=== PATIENT | male | born 1940 | race Caucasian/White ===

== ENCOUNTER 2018-01-04 15:52 | Inpatient (IN) | payer OTHER, MEDICAID ==
[~2018-01-04] VITALS: Ht 185.4 cm; Wt 86.2 kg
[~2018-01-04 15:52] MED LIST: AUGMENTIN 500-1 EACH PO; BACTRIM DS TAB1 EACH PO; GLIPIZIDE XL5 MG PO; HUMALOG KW100 UNIT/1 SUBQ; KEFLEX500 MG PO; LEVEMIR SUBQ; LINZESS145 MCG PO; LISINOPRIL; LISINOPRIL20 MG PO; NORVASC5 MG PO; PRILOSEC 20 MG20 MG PO; TOPROL XL25 MG PO; ZOCOR20 MG PO
[2018-01-04 16:05] VITALS: BP 113/54
[2018-01-04] MEDS ORDERED: LASIX 20 MG TAB20 MG PO (16:14)
[2018-01-04] MEDS ORDERED: COLACE100 MG PO (16:14)
[2018-01-04] MEDS ORDERED: KLOR-CON 1010 MEQ PO (16:14)
[2018-01-04 16:15] LABS: HEMATOCRIT 34.7 % (42.0-52.0); HEMOGLOBIN 11.6 gm/dL (14.0-18.0); MCH 28.6 pg (26.0-34.0); MCHC 33.5 g/dL (28.0-37.0); MCV 85.3 fL (80.0-100.0); NUCLEATED RBCS 0 /100WBC; PLATELET COUNT* 280 thou/uL (150-400); RBC 4.06 mil/uL (4.50-6.00); RDW-CV 15.3 % (10.5-14.5); WBC 11.4 thou/uL (4.0-11.0)
[2018-01-04] MEDS ORDERED: VITAMINC500 PO (16:15)
[2018-01-04] MEDS ORDERED: FLORASTOR250 MG PO (16:15)
[2018-01-04] MEDS ORDERED: MIRALAX17 GM PO (16:15)
[2018-01-04] MEDS ORDERED: TYLENOL EXTRA500 MG PO (16:16)
[2018-01-04] MEDS ORDERED: NORCO 5-325 TA1 EACH PO (16:16)
[2018-01-04] MEDS ORDERED: [UNRECOGNIZED DRUG - OTHER] (16:16)
[2018-01-04] MEDS ORDERED: HIPREX1 GM PO (16:17)
[2018-01-04 16:19] LABS: ANION GAP 8 mmol/L (7-16); BUN 27 mg/dL (7-18); CALCIUM 7.8 mg/dL (8.5-10.1); CHLORIDE 99 mmol/L (98-107); CO2 25 mmol/L (21-32); CREATININE 1.4 mg/dL (0.6-1.3); GLUCOSE 78 mg/dL (70-99); SODIUM 132 mmol/L (136-145)
[2018-01-04 16:22] LABS: INR 1.2; PROTIME 11.5 Seconds (9.20-11.50)
[2018-01-04 16:26] LABS: ALBUMIN 2.6 g/dL (3.4-5.0); ALKALINE PHOSPHATASE 90 U/L (46-116); LIPASE 76 U/L (73-393); SGOT 26 U/L (15-37); SGPT 28 U/L (30-65); TOTAL BILIRUBIN 0.5 mg/dL (<0.1-1.0); TOTAL PROTEIN 6.8 g/dL (6.4-8.2); TROPONIN-I LEVEL <0.06 ng/mL (<0.06)
[2018-01-04 16:56] LABS: URINE BILIRUBIN NEGATIVE (Negative); URINE BLOOD 3+ (Negative); URINE CLARITY CLOUDY; URINE COLOR YELLOW; URINE GLUCOSE-RANDOM NEGATIVE (Negative); URINE KETONES NEGATIVE (Negative); URINE LEUKOCYTES-REFLEX 3+ (Negative); URINE NITRITE-REFLEX NEGATIVE (Negative); URINE PROTEIN 3+ (Negative); URINE SPECIFIC GRAVITY 1.025 (1.005-1.030); URINE UROBILINOGEN 0.2 E.U./dl (0.2-1.0)
[2018-01-04 17:02] LABS: ABSOLUTE EOSINOPHILS 0.2 thou/uL (0.0-0.7); ABSOLUTE LYMPHOCYTES 0.9 thou/uL (0.8-5.3); ABSOLUTE MONOCYTES 1.7 thou/uL (0.0-1.2); ABSOLUTE NEUTROPHILS 8.6 thou/uL (1.6-8.1)
[2018-01-04 17:03] LABS: PLATELET ESTIMATE ADEQUATE
[2018-01-04 17:06] LABS: URINE WBC-REFLEX >25 Many /HPF (0-5); WBC CLUMPS Few (None Seen)
[2018-01-04 17:08] LABS: HYALINE CASTS 0-3 Few /LPF (None Seen)
[2018-01-04 17:09] LABS: CRYSTALS None Seen /LPF (None Seen); MUCUS None Seen strn/LPF (None Seen); SQUAMOUS NONE SEEN /LPF (0-3)
[2018-01-04 17:15] VITALS: BP 142/69
[2018-01-04 17:18] VITALS: BP 113/54
[2018-01-04 20:00] VITALS: BP 126/76
[2018-01-05] VITALS: BP 117/42; BP 125/60
[2018-01-05 04:00] VITALS: BP 124/46
[2018-01-05 06:06] LABS: CALCIUM 7.4 mg/dL (8.5-10.1); CREATININE 1.2 mg/dL (0.6-1.3)
[2018-01-05 07:50] VITALS: BP 114/51
--- NOTE | 2018-01-05 09:39 | EKG ---
[place] [address] ELECTROCARDIOGRAM REPORT Name: YASIR CARROLL Room: [address] ADM IN M.R.#: [id number] Admission: 01/04/18 Attend Phys: Mihai Burdick Discharge: Date of : 36 Report #: [id number] THIS REPORT FOR: //name// [facility] ED Test Date: 2018-01-04 Test Time: 16:07:14 Pat Name: YASIR CARROLL Department: Room: [facility] Gender: M Senior Writer: MS : 1940 Requested By: Ras Loving Order Number: [id number] MD: Naseem Trotter Measurements Intervals [place] Rate: 64 P: -24 MT: 221 QRS: -28 QRSD: 99 T: 32 QT: 419 QTc: 433 Interpretive Statements Sinus rhythm Prolonged MT interval Borderline left axis deviation Abnormal R-wave progression, early transition Baseline wander in lead(s) I,II,aVR Compared to ECG 03/14/2017 15:20:58 First degree AV block now present Left ventricular hypertrophy no longer present Electronically Signed On 01-05-2018 9:39:04 CDT by Naseem Trotter [email or web address] <ELECTRONICALLY SIGNED> By: Naseem Trotter MD, FACC 01/05/18 0939 1607 [id number] Naseem Tortter MD, FAC /EPI
[2018-01-05 11:57] VITALS: BP 119/52
[2018-01-05 15:59] VITALS: BP 122/57
[2018-01-05 20:00] VITALS: BP 97/35
[2018-01-06] VITALS: BP 123/41
[2018-01-06 04:00] VITALS: BP 126/49
[2018-01-06 04:16] LABS: HEMATOCRIT 34.3 % (42.0-52.0); HEMOGLOBIN 11.4 gm/dL (14.0-18.0); MCH 28.3 pg (26.0-34.0); MCHC 33.3 g/dL (28.0-37.0); MCV 85.1 fL (80.0-100.0); MPV 8.1 fl. (7.2-11.1); RBC 4.03 mil/uL (4.50-6.00); RDW-CV 15.5 % (10.5-14.5); WBC 7.7 thou/uL (4.0-11.0)
[2018-01-06 04:37] LABS: ALBUMIN 2.1 g/dL (3.4-5.0); CALCIUM 7.3 mg/dL (8.5-10.1); CREATININE 1.1 mg/dL (0.6-1.3); MAGNESIUM 1.4 mg/dL (1.8-2.4); PHOSPHORUS* 2.8 mg/dL (2.5-4.9); POTASSIUM 3.4 mmol/L (3.5-5.1)
[2018-01-06 08:00] VITALS: BP 112/37
[2018-01-06 12:16] VITALS: BP 134/51
--- NOTE | 2018-01-06 12:50 | CON ---
[address] [address] CONSULTATION Name: YASIR CARROLL Room: [address] IN M.R.#: [id number] Admission: 01/04/18 Attend Phys: Mihai Burdick Discharge: Date of : 36 Report #: [id number] THIS REPORT FOR: //name// CC[facility] DATE OF SERVICE: 01/05/2018 ATTENDING PHYSICIAN: Dr. Suarez. REASON FOR EVALUATION: Scrotal cellulitis, sepsis. HISTORY OF PRESENT ILLNESS: Chart reviewed. The patient is a 77-year-old half-way resident who was admitted with encephalopathy. It is notable he has history of diabetes. Apparently, he has some dysphagia as well. Apparently, he was quite lethargic, noted to have some fevers, specific question primarily yes, no. Seemed to have pain in both lower extremities, perhaps in his scrotum as well. Denies significant pulmonary-related complaints, although there was reference to some chest pain. In terms of evaluation for fevers, chest x-ray was otherwise unremarkable as was urinalysis. Essentially, blood cultures are sterile thus far. He was felt to have possible scrotal cellulitis, started on empiric therapy with vancomycin, meropenem and Zosyn. ALLERGIES: TO LATEX. CURRENT MEDICATIONS: Include meropenem, Zosyn, insulin, glipizide, saccharomyces, amlodipine, hydrocodone. PAST MEDICAL HISTORY: History of diabetes mellitus, hypertension, previous history of colon cancer with colostomy. Does have some venous stasis insufficiency of lower extremities and perhaps lymphedema. SOCIAL HISTORY: Nonsmoker, no ethanol. FAMILY HISTORY: Noncontributory. REVIEW OF SYSTEMS: Somewhat limited due to his speech difficulty and possible some degree of dementia. PHYSICAL EXAMINATION: GENERAL: He appears chronically ill, undernourished, mild to moderate distress. VITAL SIGNS: Temperature max 103.1, more recently 98.8; pulse 68, respirations 18, blood pressure 114/51. SKIN: Warm, several contused areas. NECK: [place] [address] CONSULTATION Name: CARROLLYASIR PLUMMER Room: [address] IN [facility]#: [id number] Admission: 01/04/18 Attend Phys: Mihai Burdick Discharge: Date of : 36 Report #: [id number] LUNGS: Diminished breath sounds. Few scattered crackles at the bases posteriorly. HEART: Regular. I do not appreciate a murmur. ABDOMEN: Mildly obese, soft, no peritoneal signs. PELVIC: Penis and scrotum have moderate degree of inflammation. There is some induration, especially in the suprapubic region. It is difficult to ascertain tenderness. EXTREMITIES: Lower extremities have venous stasis insufficiency changes with dermopathy. Left side has increased temperature. There is a mild degree of surface inflammation noted. There are no bullous lesions or ulcers. GENITOURINARY: Deferred. RECTAL: Deferred. LABORATORY DATA: Blood cultures sterile thus far. Electrolytes: Sodium 135, potassium 4, chloride 102, bicarbonate 24, BUN and creatinine 18 and 1.2. Prealbumin of 12.9, glucose has been mostly normal. CBC: White count of 11.4, H and H 11.6 and 34.7, platelets of 280, does have monocytosis. Lactic acid 0.9. Liver functions otherwise unremarkable. Albumin 2.6, total protein . Estimated GFR 49. PT of 11.5, INR of 1.2. ASSESSMENT: Scrotal cellulitis, perhaps lower extremity inflammatory eruption may have component particularly in the left of a cellulitis as well. We will adjust antimicrobial therapy. I think we could back off on the significant gram-negative coverage at this point. We will dose with vancomycin and see how he does clinically. At this point, most likely be a gram-positive infection. We will add compression to the lower extremities as allowed and elevation. <ELECTRONICALLY SIGNED> By: Ned Hoover MD 01/06/18 1250 [id number] [id number] Hoover MD /nt
[2018-01-06 19:30] VITALS: BP 123/60
[2018-01-07] VITALS: BP 138/57
[2018-01-07 04:00] VITALS: BP 146/62
[2018-01-07 05:38] LABS: HEMATOCRIT 35.3 % (42.0-52.0); HEMOGLOBIN 11.7 gm/dL (14.0-18.0); MCH 28.3 pg (26.0-34.0); MCHC 33.2 g/dL (28.0-37.0); MCV 85.1 fL (80.0-100.0); MPV 7.9 fl. (7.2-11.1); RBC 4.15 mil/uL (4.50-6.00); RDW-CV 15.2 % (10.5-14.5); WBC 7.2 thou/uL (4.0-11.0)
[2018-01-07 05:54] LABS: ALBUMIN 2.2 g/dL (3.4-5.0); CALCIUM 7.8 mg/dL (8.5-10.1); MAGNESIUM 1.6 mg/dL (1.8-2.4); POTASSIUM 3.8 mmol/L (3.5-5.1); TOTAL BILIRUBIN 0.3 mg/dL (<0.1-1.0); TOTAL PROTEIN 5.9 g/dL (6.4-8.2)
[2018-01-07 08:00] VITALS: BP 141/57
[2018-01-07 12:46] VITALS: BP 117/53
[2018-01-07 15:55] VITALS: BP 138/67
[2018-01-07 19:45] VITALS: BP 125/57
[2018-01-08] VITALS: BP 137/69
[2018-01-08 08:30] VITALS: BP 126/60
[2018-01-08 11:27] LABS: URINE BILIRUBIN NEGATIVE (Negative); URINE BLOOD TRACE (Negative); URINE CLARITY CLEAR; URINE COLOR YELLOW; URINE GLUCOSE-RANDOM NEGATIVE (Negative); URINE KETONES NEGATIVE (Negative); URINE LEUKOCYTES TRACE (Negative); URINE NITRITE NEGATIVE (Negative); URINE PROTEIN TRACE (Negative); URINE UROBILINOGEN 0.2 E.U./dl (0.2-1.0)
[2018-01-08 11:49] LABS: SQUAMOUS NONE SEEN /LPF (0-3)
[2018-01-08 11:50] LABS: BACTERIA 1-9 Few /HPF (None Seen); CASTS None Seen /LPF (None Seen); CRYSTALS None Seen /LPF (None Seen); MUCUS None Seen strn/LPF (None Seen); URINE RBC 0-2 Rare /HPF (0-2); URINE WBC 0-5 Rare /HPF (0-5)
[2018-01-08 18:38] VITALS: BP 127/68
[2018-01-08 19:30] VITALS: BP 125/54
[2018-01-09 04:51] LABS: HEMATOCRIT 37.3 % (42.0-52.0); HEMOGLOBIN 12.3 gm/dL (14.0-18.0); MCH 28.2 pg (26.0-34.0); MCV 85.4 fL (80.0-100.0); MPV 7.8 fl. (7.2-11.1); RBC 4.37 mil/uL (4.50-6.00); RDW-CV 15.2 % (10.5-14.5); WBC 7.8 thou/uL (4.0-11.0)
[2018-01-09 05:38] LABS: ALBUMIN 2.6 g/dL (3.4-5.0); CALCIUM 8.3 mg/dL (8.5-10.1); MAGNESIUM 1.9 mg/dL (1.8-2.4); POTASSIUM 4.2 mmol/L (3.5-5.1); TOTAL BILIRUBIN 0.4 mg/dL (<0.1-1.0); TOTAL PROTEIN 5.9 g/dL (6.4-8.2)
[2018-01-09 08:00] VITALS: BP 114/57
[2018-01-09 10:00] LABS: URINE BILIRUBIN NEGATIVE (Negative); URINE BLOOD NEGATIVE (Negative); URINE CLARITY CLEAR; URINE COLOR YELLOW; URINE GLUCOSE-RANDOM NEGATIVE (Negative); URINE KETONES NEGATIVE (Negative); URINE LEUKOCYTES-REFLEX 1+ (Negative); URINE NITRITE-REFLEX NEGATIVE (Negative); URINE PROTEIN NEGATIVE (Negative); URINE UROBILINOGEN 0.2 E.U./dl (0.2-1.0)
[2018-01-09 10:47] LABS: CASTS None Seen /LPF (None Seen); SQUAMOUS NONE SEEN /LPF (0-3)
[2018-01-09 10:48] LABS: BACTERIA-REFLEX 1-9 Few /HPF (None Seen); CRYSTALS None Seen /LPF (None Seen); URINE RBC None Seen /HPF (0-2); URINE WBC-REFLEX 6-15 Few /HPF (0-5)
[2018-01-09 15:50] VITALS: BP 115/50
[2018-01-09 20:00] VITALS: BP 156/80
[2018-01-10] VITALS: BP 156/68
[2018-01-10 04:00] VITALS: BP 139/73
[2018-01-10 04:22] LABS: HEMATOCRIT 38.3 % (42.0-52.0); HEMOGLOBIN 12.9 gm/dL (14.0-18.0); MCH 28.7 pg (26.0-34.0); MCHC 33.7 g/dL (28.0-37.0); MCV 85.1 fL (80.0-100.0); MPV 7.6 fl. (7.2-11.1); RBC 4.51 mil/uL (4.50-6.00); RDW-CV 15.4 % (10.5-14.5); WBC 9.7 thou/uL (4.0-11.0)
[2018-01-10 04:52] LABS: ALBUMIN 2.6 g/dL (3.4-5.0); CALCIUM 8.2 mg/dL (8.5-10.1); CREATININE 1.1 mg/dL (0.6-1.3); POTASSIUM 3.9 mmol/L (3.5-5.1); TOTAL BILIRUBIN 0.3 mg/dL (<0.1-1.0); TOTAL PROTEIN 6.8 g/dL (6.4-8.2)
[2018-01-10 08:00] VITALS: BP 112/86
[2018-01-10 12:00] VITALS: BP 86/50
[2018-01-10 16:00] VITALS: BP 138/70
[2018-01-10 20:00] VITALS: BP 115/54
[2018-01-11] VITALS: BP 123/56
[2018-01-11 04:00] VITALS: BP 127/60
[2018-01-11 04:56] LABS: HEMATOCRIT 37.3 % (42.0-52.0); HEMOGLOBIN 12.2 gm/dL (14.0-18.0); MCHC 32.8 g/dL (28.0-37.0); MCV 85.4 fL (80.0-100.0); MPV 7.6 fl. (7.2-11.1); RBC 4.37 mil/uL (4.50-6.00); RDW-CV 15.6 % (10.5-14.5); WBC 11.7 thou/uL (4.0-11.0)
[2018-01-11 05:32] LABS: ALBUMIN 2.6 g/dL (3.4-5.0); CALCIUM 8.7 mg/dL (8.5-10.1); CREATININE 1.3 mg/dL (0.6-1.3); MAGNESIUM 2.2 mg/dL (1.8-2.4); TOTAL BILIRUBIN 0.3 mg/dL (<0.1-1.0); TOTAL PROTEIN 6.6 g/dL (6.4-8.2)
[2018-01-11 08:00] VITALS: BP 117/66
[2018-01-11 11:54] VITALS: BP 117/66
[2018-01-11] MEDS ORDERED: ZYVOX600 MG PO (11:56)
[2018-01-11 12:11] VITALS: BP 117/66
== END 2018-01-11 15:15 | disposition home health service (06) | DRG 698 ==
LOC: M.ERS 15:52 → M.2W 16:30 → M.TBA-ER 16:30 → M.2W 17:07
PROVIDERS: Emergency Medicine; Internal Medicine; Specialist; ADMIT Internal Medicine
DX: T83.511A Infection and inflammatory reaction due to indwelling urethral catheter, initial encounter (principal); A41.02 Sepsis due to Methicillin resistant Staphylococcus aureus; G93.41 Metabolic encephalopathy; N17.9 Acute kidney failure, unspecified; N18.2 Chronic kidney disease, stage 2 (mild); E11.22 Type 2 diabetes mellitus with diabetic chronic kidney disease; I12.9 Hypertensive chronic kidney disease with stage 1 through stage 4 chronic kidney disease, or unspecified chronic kidney disease; Y83.8 Other surgical procedures as the cause of abnormal reaction of the patient, or of later complication, without mention of misadventure at the time of the procedure; N39.0 Urinary tract infection, site not specified; N49.2 Inflammatory disorders of scrotum; F03.90 Unspecified dementia, unspecified severity, without behavioral disturbance, psychotic disturbance, mood disturbance, and anxiety; I87.8 Other specified disorders of veins; E66.9 Obesity, unspecified; Q54.9 Hypospadias, unspecified; Z68.25 Body mass index [BMI] 25.0-25.9, adult; Z85.038 Personal history of other malignant neoplasm of large intestine; Z93.3 Colostomy status; Z79.4 Long term (current) use of insulin; Z79.899 Other long term (current) drug therapy; Y92.89 Other specified places as the place of occurrence of the external cause; Z91.040 Latex allergy status